=== PATIENT | female | born 1970 | race African-American/Black ===

== ENCOUNTER 2024-06-02 17:44 | Observation (INO) | payer SELFPAY ==
[2024-06-02] MEDS: ONDANSETRON 4 MG/2 ML VIAL IVPUSH ONE (20:52)
[2024-06-02] MEDS: SODIUM CHLORIDE 0.9% 500 ML INFUS.BAG IV ONE (20:52)
[2024-06-02 20:57] LABS: HEMATOCRIT 34.6 % (32.4-45.2); HEMOGLOBIN 11.6 GM/dL (10.7-15.3); MCH 31.2 pg (25.7-33.7); MCHC 33.6 g/dl (32.0-36.0); MEAN CELL VOLUME 92.7 fl (80-96); MEAN PLT VOLUME 7.9 fl (7.5-11.1); PLATELET COUNT 300 10^3/uL (134-434); RBC 3.74 M/mm3 (3.60-5.2); RDW 11.9 % (11.6-15.6); WHITE BLOOD COUNT 22.2 K/mm3 (4.0-10.0)
[2024-06-02 21:27] LABS: POTASSIUM 3.6 mmol/L (3.5-5.1)
[2024-06-02 21:28] LABS: CALCIUM 9.3 mg/dL (8.5-10.1)
[2024-06-02 21:29] LABS: ALBUMIN 4.6 g/dl (3.4-5.0); BLOOD UREA NITROGEN 11.6 mg/dL (7-18); MAGNESIUM 2.1 mg/dL (1.8-2.4)
[2024-06-02 21:32] LABS: CREATININE 1.1 mg/dL (0.55-1.3)
[2024-06-02 21:34] LABS: BILIRUBIN,TOTAL 0.5 mg/dL (0.2-1); TOT PROT 8.3 g/dl (6.4-8.2)
[2024-06-02 21:45] LABS: ANISOCYTOSIS 1+; MACROCYTOSIS 0; TARGET CELLS 1+; TEAR DROP CELLS 1+
[2024-06-02 22:53] LABS: HEMATOCRIT 31.2 % (32.4-45.2); HEMOGLOBIN 10.6 GM/dL (10.7-15.3); MCH 31.6 pg (25.7-33.7); MEAN PLT VOLUME 7.8 fl (7.5-11.1); PLATELET COUNT 262 10^3/uL (134-434); RBC 3.36 M/mm3 (3.60-5.2); RDW 11.9 % (11.6-15.6); WHITE BLOOD COUNT 19.6 K/mm3 (4.0-10.0)
[2024-06-02 23:12] LABS: ANISOCYTOSIS 0; MACROCYTOSIS 0; TEAR DROP CELLS 2+
[2024-06-03] MEDS ORDERED: ACETAMINOPHEN INJECTION 100 ML IVPB ONE (00:21)
[2024-06-03] MEDS: ACETAMINOPHEN 1000 MG/100 ML BAG IVPB ONE (00:30)
[2024-06-03] MEDS ORDERED: ACETAMINOPHEN 1000 MG/100 ML BAG IVPB PRN (02:05)
[2024-06-03] MEDS ORDERED: ONDANSETRON 4 MG/2 ML VIAL IVPUSH PRN (02:13)
[2024-06-03] MEDS: ASPIRIN 81 MG CHEWABLE TABLETS PO ONE (02:38)
[2024-06-03] MEDS ORDERED: ASPIRIN 81 MG CHEWABLE TABLETS ONE (03:35)
[2024-06-03] MEDS ORDERED: traMADol HCL 50 MG TABLET PO PRN (05:03)
[2024-06-03 06:31] VITALS: BMI 21.7
[2024-06-03 07:14] LABS: COCAINE, UR NEGATIVE (NEGATIVE); URINE AMPHETAMINES NEGATIVE (NEGATIVE); URINE BARBITURATES NEGATIVE (NEGATIVE)
[2024-06-03 07:15] LABS: METHADONE, UR NEGATIVE (NEGATIVE); PHENCYCLIDINE,URINE NEGATIVE (NEGATIVE); URINE BENZODIAZEPINES NEGATIVE (NEGATIVE)
[2024-06-03 07:27] LABS: OPIATES, URI POSITIVE (NEGATIVE)
[2024-06-03 08:17] LABS: EPI CELLS >36 /uL (0-25.1); HYALINE CASTS 0 /uL (0-3.1); PH,URINE 6.5 (5.0-8.0); URINE APPEARANCE CLEAR; URINE BACTERIA 4570 /uL (0-1359); URINE BILIRUBIN NEGATIVE (NEGATIVE); URINE COLOR YELLOW; URINE GLUCOSE (UA) NEGATIVE (NEGATIVE); URINE KETONE NEGATIVE (NEGATIVE); URINE LEUK ESTERASE NEGATIVE (NEGATIVE); URINE NITRITE NEGATIVE (NEGATIVE); URINE PROTEIN NEGATIVE (NEGATIVE); URINE UROBILINOGEN 0.2 mg/dL (0.2-1.0)
[2024-06-03 08:26] LABS: BASO % 0.3 % (0-2.0); EOS % 0.1 % (0-4.5); HEMATOCRIT 27.2 % (32.4-45.2); HEMOGLOBIN 9.3 GM/dL (10.7-15.3); LYMPH % 14.1 % (8-40); MCHC 34.4 g/dl (32.0-36.0); MEAN PLT VOLUME 8.3 fl (7.5-11.1); MONO % 8.4 % (3.8-10.2); NEUT % 77.1 % (42.8-82.8); PLATELET COUNT 234 10^3/uL (134-434); RBC 2.92 M/mm3 (3.60-5.2); RDW 11.8 % (11.6-15.6); WHITE BLOOD COUNT 12.5 K/mm3 (4.0-10.0)
[2024-06-03 08:41] LABS: POTASSIUM 3.6 mmol/L (3.5-5.1)
[2024-06-03 08:47] LABS: CALCIUM 8.5 mg/dL (8.5-10.1)
[2024-06-03 08:48] LABS: BLOOD UREA NITROGEN 10.6 mg/dL (7-18); MAGNESIUM 1.8 mg/dL (1.8-2.4)
[2024-06-03 08:49] LABS: BILIRUBIN,DIRECT 0.2 mg/dL (0.0-0.2); CREATININE 0.7 mg/dL (0.55-1.3); PHOSPHOROUS 2.3 mg/dL (2.5-4.9)
[2024-06-03 08:51] LABS: BILIRUBIN,TOTAL 0.6 mg/dL (0.2-1); TOT PROT 6.7 g/dl (6.4-8.2)
[2024-06-03 08:55] LABS: ALBUMIN 3.5 g/dl (3.4-5.0)
[2024-06-03 09:32] LABS: URINE RBC 30 /uL (0-23.9); URINE WBC 66 /uL (0-25.8)
[2024-06-03 09:44] LABS: HIV INTERPRETATION NEGATIVE (NEGATIVE)
[2024-06-03] MEDS: LIDOCAINE 5% TOPICAL PATCH TP SCH (11:20)
[2024-06-03] MEDS: SODIUM CHLORIDE 1,000 ML IV SCH (11:21)
[2024-06-03] MEDS: ENOXAPARIN NA (PORCINE) 40 MG/0.4 ML DISP.SYRIN SQ SCH (11:21)
[2024-06-03] MEDS: ASPIRIN 81 MG CHEWABLE TABLETS PO SCH (11:21)
[2024-06-03] MEDS ORDERED: KETOROLAC TROMETHAMINE 30 MG/1 ML VIAL IVPUSH PRN (12:20)
[2024-06-03] MEDS: LIDOCAINE 4% PATCH TP SCH (13:20)
[2024-06-03 15:17] VITALS: RESP 18
[2024-06-03] MEDS: LIDOCAINE PATCH REMOVAL MC SCH ×2 (21:34)
[2024-06-03 21:49] LABS: MAGNESIUM 1.7 mg/dL (1.8-2.4)
[2024-06-03 21:54] LABS: PHOSPHOROUS 2.4 mg/dL (2.5-4.9)
[2024-06-04 08:22] LABS: BASO % 0.7 % (0-2.0); EOS % 0.6 % (0-4.5); HEMATOCRIT 29.7 % (32.4-45.2); HEMOGLOBIN 10.1 GM/dL (10.7-15.3); LYMPH % 26.6 % (8-40); MCH 31.6 pg (25.7-33.7); MCHC 33.8 g/dl (32.0-36.0); MEAN CELL VOLUME 93.6 fl (80-96); MEAN PLT VOLUME 8.3 fl (7.5-11.1); MONO % 8.5 % (3.8-10.2); NEUT % 63.6 % (42.8-82.8); PLATELET COUNT 245 10^3/uL (134-434); RBC 3.18 M/mm3 (3.60-5.2); WHITE BLOOD COUNT 7.6 K/mm3 (4.0-10.0)
[2024-06-04 08:32] LABS: POTASSIUM 3.8 mmol/L (3.5-5.1)
[2024-06-04 08:36] LABS: ALBUMIN 3.4 g/dl (3.4-5.0); BLOOD UREA NITROGEN 6.3 mg/dL (7-18); CALCIUM 8.8 mg/dL (8.5-10.1)
[2024-06-04 08:41] LABS: BILIRUBIN,TOTAL 0.9 mg/dL (0.2-1); TOT PROT 6.2 g/dl (6.4-8.2)
[2024-06-04 08:42] LABS: CREATININE 0.7 mg/dL (0.55-1.3)
[2024-06-04 09:00] VITALS: BP 124/81; PULSE 80; TEMP 98.2
[2024-06-04] MEDS: MAGNESIUM 1GM/D5W - 1 GM/100 ML IVPB IVPB ONE (13:20)
== END 2024-06-04 15:10 | disposition home or self-care (01) ==
LOC: JER 17:44 → JERBED 06-03 02:24 → J4W 06-03 05:49
PROVIDERS: ADMIT Internal Medicine; ATTEND Internal Medicine
CPT/HCPCS: 36415; 71045-TC-FY; 72131-TC; 72192-TC; 76705-TC; 80053; 80307; 81003; 82248; 82962; 83735; 84100; 84484; 85025; 86705; 86707; 86708; 86803; 87086; 87340; 87350; 87389; 93005; 93010; 99285-25; G0378; J0131